=== PATIENT | male | born 1960 | race Asian ===

== ENCOUNTER 2020-09-17 14:59 | Outpatient (CLI) | payer MEDICAID ==
--- NOTE | 2020-09-17 16:24 | XRAY Report ---
PROCEDURE: Chest 2 View X-Ray INDICATIONS: CHRONIC COUGH TECHNIQUE: 2 view(s) of the chest. COMPARISON: None. FINDINGS: Surgical changes and devices: None. Lungs and pleura: No pleural effusions or pneumothorax. Lungs are clear. Mediastinum: Mediastinal contours are normal. Heart size is normal. Bones and chest wall: No suspicious bony abnormalities. Soft tissues appear unremarkable. IMPRESSION: No acute disease. Reviewed by: Shravan Candelaria MD on 09/17/2020 4:23 PM PDT Approved by: Shravan Candelaria MD on 09/17/2020 4:23 PM PDT Station ID: [id number]
== END 2020-09-17 15:00 | disposition home or self-care (01) ==
LOC: DI.S 14:59
DX: R05 Cough (principal)